=== PATIENT | female | born 1935 | race Two or more races ===

== ENCOUNTER 2016-08-22 05:15 | Inpatient (IN) | payer MEDICARE, MEDICAID ==
[~2016-08-22] VITALS: Ht 149.9 cm; Wt 80.3 kg
[~2016-08-22 05:15] MED LIST: Bisacodyl RC; CALC500T71 PO; CARV3.122 PO; CHOL100044 PO; DOCU-25 PO; HYDR-3326 PO; HYDR-4076 PO; LOSA50TA21 PO; METF500T4 PO; RIVA10TA PO; SIMV20TA6 PO; Sennosides PO
[2016-08-22] MEDS ORDERED: SECONDARY IV SET 1 EA INFUS.SET MC ONE ×2 (05:29→14:28)
[2016-08-22] MEDS ORDERED: IV LR 1000 ML 1,000 ML ONE (05:29)
[2016-08-22] MEDS ORDERED: CEFAZOLIN SODIUM/DEXTROSE,ISO 50 ML IV ONE (05:29)
[2016-08-22] MEDS ORDERED: IV SET PRIMARY 1 EA INFUS.SET MC ONE (05:29)
[2016-08-22] MEDS ORDERED: NEEDLELESS EST SET LARGE BORE 1 EA INFUS.SET MC ONE (05:29)
[2016-08-22] MEDS ORDERED: MIDAZOLAM HCL 2 MG/2ML VIAL ONE (06:13)
[2016-08-22] MEDS ORDERED: MORPHINE SULFATE/PF 10 MG/10ML (1MG/ML) AMPUL ONE (06:14)
[2016-08-22] MEDS ORDERED: BUPIVACAINE MPF 0.5% W/EPI INJ 30 ML VIAL ONE (06:27)
[2016-08-22] MEDS ORDERED: BACITRACIN 50000 UNITS/VIAL ONE (06:27)
[2016-08-22] MEDS ORDERED: LIDOCAINE HCL/PF 1% 30 ML SDV ONE (06:27)
[2016-08-22] MEDS ORDERED: KETOROLAC TROMETHAMINE INJ 30 MG/ML VIAL ONE (07:21)
[2016-08-22] MEDS ORDERED: TRANEXAMIC ACID 3,000 MG in SODIUM CHLORIDE IRRIG SOLUTION 70 ML IR ONE (07:30)
[2016-08-22 07:35] VITALS: BP 166/76
[2016-08-22] MEDS ORDERED: METOCLOPRAMIDE HCL 10 MG/2 ML VIAL ONE (09:05)
[2016-08-22 09:30] VITALS: BP 153/78
--- NOTE | 2016-08-22 09:30 | NUR ---
DROP HAMMER MECHANIC DIRECT ADMITTING NOTES DIRECTLY ADMITTED PT FROM OR WITH DX OSTEOARTHRITIS S/P LT TOTAL KNEE ARTHROPLASTY BY DR MOSELEY WITH DRESSING INTACT-CLEAN AND DRY.PT IS ALERT AND ORIENTED X4.VERBALLY RESPONSIVE IN KOREAN.WITH KAN CATHETER DRAINING CLEAR URINE OUTPUT.COORDINATED WITH P.T. REGARDING CPM MACHINE.FOR P.T. EVAL.PT FEELS NAUSEOUS.ZOFRAN GIVEN PRN FOR NAUSEA NGT.CALL LIGHT PLACED WITHIN REACH.WILL CONTINUE TO MONITOR.
[2016-08-22] MEDS ORDERED: NALOXONE HCL 0.4 MG/ML AMPUL IV PRN (10:00)
[2016-08-22] MEDS ORDERED: DULCOLAX 10 MG/SUPP.RECT RC PRN (10:00)
[2016-08-22] MEDS ORDERED: SENOKOT 8.6 MG TABLET PO PRN (10:00)
[2016-08-22] MEDS ORDERED: COLACE 250 MG CAPSULE PO PRN (10:00)
[2016-08-22] MEDS ORDERED: diphenhydrAMINE HCL 50 MG/ML VIAL IV PRN (10:00)
[2016-08-22] MEDS ORDERED: TYLENOL 650 MG TABLET PO PRN (10:00)
[2016-08-22] MEDS: ZOFRAN 4mg/2ML IV PRN ×3 (10:08→22:28)
[2016-08-22] MEDS ORDERED: DEXTROSE 50%-WATER 50 ML DISP.SYRIN IV PRN (11:00)
[2016-08-22 12:00] VITALS: BP 180/96
[2016-08-22 12:09] LABS: BASOPHILS % (AUTO) 0.2 % (0.0-2.0); EOSINOPHILS % (AUTO) 0.1 % (0.0-6.0); HEMATOCRIT 40 % (33-45); HEMOGLOBIN 12.9 g/dL (11.5-14.8); LYMPHOCYTES # (AUTO) 1.4 /CMM (0.8-4.8); LYMPHOCYTES % (AUTO) 12.7 % (20.0-44.0); MEAN CORPUSCULAR HEMOGLOBIN 28 PG (26.0-33.0); MEAN CORPUSCULAR HGB CONC 33 g/dl (31.0-36.0); MEAN CORPUSCULAR VOLUME 87 fL (82-100); MONOCYTES # (AUTO) 0.1 /CMM (0.1-1.30); MONOCYTES % (AUTO) 0.8 % (2.0-12.0); NEUTROPHILS # (AUTO) 9.3 /CMM (1.8-8.9); NEUTROPHILS % (AUTO) 86.2 % (43.0-81.0); PLATELET COUNT (AUTO) 273 /CMM (150-450); RDW COEFFICIENT OF VARIATION 14.9 (11.5-15.0); RED BLOOD CELL COUNT(AUTO) 4.55 MIL/uL (4.0-5.2); WHITE BLOOD COUNT (AUTO) 10.8 K/uL (4.3-11.0)
[2016-08-22 12:14] LABS: CALCIUM, SERUM 8.2 mg/dL (8.5-10.1); CREATININE 0.6 mg/dL (0.6-1.3); MAGNESIUM 1.7 mg/dL (1.8-2.4); POTASSIUM 4.1 mmol/L (3.5-5.1)
[2016-08-22] MEDS ORDERED: POLYETHYLENE GLYCOL 3350 17 GM POWD.PACK PO PRN (13:30)
[2016-08-22] MEDS: Magnesium 1GM/D5W 100ML PREMIX 100 ML IV SCH ×2 (14:22→16:11)
[2016-08-22] MEDS: hydrALAZINE HCL 25 MG TABLET PO PRN (14:22)
[2016-08-22] MEDS: BLOOD SUGAR DIAGNOSTIC 1 EACH STRIP IN SCH ×3 (14:22→21:12)
[2016-08-22] MEDS ORDERED: IV SET PRIMARY PUMP SET 1 EA INFUS.SET MC ONE (14:24)
[2016-08-22] MEDS: IV D5/0.45 NACL 1,000 ML IV PRN (14:39)
[2016-08-22 16:00] VITALS: BP 138/77
[2016-08-22] MEDS: ANCEF 1 G in IV D5W 50 ML IV SCH ×2 (16:12→22:28)
--- NOTE | 2016-08-22 18:00 | NUR ---
PT RESTING IN BED DENYING ANY PAIN OR DISTRESS.REMOVED CPM.PT STILL HAS MILD NAUSEA.REFUSED PAIN MEDS OFFERED.CALL LIGHT WITHIN REACH.
[2016-08-22] MEDS: DOCUSATE SODIUM 100 MG CAPSULE PO SCH (18:20)
[2016-08-22] MEDS: CALCIUM CARBONATE (1250) 500 MG TABLET PO SCH (18:20)
[2016-08-22] MEDS: INSULIN REGULAR, HUMAN 100 UNIT/ML 3 ML VIAL SQ PRN ×2 (18:23→21:14)
--- NOTE | 2016-08-22 19:25 | NUR ---
WHEAT BUYER NOTE RECEIVED PATIENT FROM DAY SHIFT, PATIENT IS ALERT AND ORIENTEDX4, SLOVENIAN SPEAKER MAINLY. DENIES RESPIRATORY DISTRESS OR PAIN AT THIS TIME. IV ON RIGHT WRIST IS PATENT AND INTACT, FLUID IS RUNNING. S/P LEFT KNEE DRESSING NOTED C/D/I. TELE MONITOR SR 75. SRX2, BED IN LOW POSITION, CALL LIGHT WITHIN REACH, WILL CONTINUE TO MONITOR PATIENT.
[2016-08-22 20:50] VITALS: BP 137/69
[2016-08-22] MEDS: RIVAROXABAN 10 MG TABLET PO SCH (21:13)
[2016-08-22] MEDS ORDERED: AMBIEN 5 MG TABLET PO PRN (22:00)
--- NOTE | 2016-08-22 22:30 | NUR ---
PROGRAMMING INTERNSHIP NOTE PATIENT COMPLAINS OF FEELING NAUSEOUS, ZOFRAN IVP GIVEN. WILL MONITOR FOR EFFECTIVENESS.
[2016-08-22] MEDS: MORPHINE SULFATE INJ 2 MG/ML DISP.SYRIN IV PRN (23:17)
--- NOTE | 2016-08-22 23:20 | NUR ---
PNEUMATIC TUBE REPAIRER NOTE PATIENT COMPLAINS OF SEVERE PAIN ON LEFT LEG 10/10, MORPHINE 2MG IVP GIVEN. WILL MONITOR FOR EFFECTIVENESS.
[2016-08-23 00:36] VITALS: BP 152/71
[2016-08-23] MEDS: IV D5/0.45 NACL 1,000 ML IV PRN (01:54)
[2016-08-23 04:14] VITALS: BP 161/71
[2016-08-23] MEDS: ZOFRAN 4mg/2ML IV PRN (04:22)
[2016-08-23] MEDS: MORPHINE SULFATE INJ 2 MG/ML DISP.SYRIN IV PRN ×2 (05:38→08:48)
[2016-08-23] MEDS: INSULIN REGULAR, HUMAN 100 UNIT/ML 3 ML VIAL SQ PRN ×4 (05:42→21:30)
[2016-08-23] MEDS: BLOOD SUGAR DIAGNOSTIC 1 EACH STRIP IN SCH ×4 (05:43→21:29)
--- NOTE | 2016-08-23 06:56 | NUR ---
IC DESIGNER CUSTOM NOTE PATIENT IS RESTING IN BED COMFORTABLY, NO S/S OF RESPIRATORY DISTRESS AND COMPLAINS OF MILD PAIN ON LEFT LEG. TELE MONITOR SR 83. IV ON RIGHT WRIST PATENT AND INTACT, FLUID RUNNING. WILL ENDORSE TO DAY SHIFT FOR AMBREEN.
[2016-08-23 07:10] VITALS: BP 170/74
--- NOTE | 2016-08-23 07:15 | NUR ---
bi solutions architect initial notes Received patient in bed, awake, head of bed elevated, no SOB or distress noted, on 02 @ 2lpm via NC and tolerated well. Alert and oriented x 3, verbally responsive and able to make needs known. IV intact and patent with IVF infusing well. Hartman in placed attached to drainage bag. Kept patient clean and comfortable in bed, call light with in patient reach, will continue to monitor accordingly. On tele monitor SR heart rate of 73.
[2016-08-23 08:00] VITALS: BP 170/74
[2016-08-23 08:08] LABS: BASOPHILS % (AUTO) 0.1 % (0.0-2.0); HEMATOCRIT 36 % (33-45); HEMOGLOBIN 11.8 g/dL (11.5-14.8); LYMPHOCYTES # (AUTO) 1.5 /CMM (0.8-4.8); LYMPHOCYTES % (AUTO) 12.7 % (20.0-44.0); MEAN CORPUSCULAR HEMOGLOBIN 29 PG (26.0-33.0); MEAN CORPUSCULAR HGB CONC 33 g/dl (31.0-36.0); MEAN CORPUSCULAR VOLUME 86 fL (82-100); MONOCYTES # (AUTO) 0.7 /CMM (0.1-1.30); NEUTROPHILS # (AUTO) 9.5 /CMM (1.8-8.9); NEUTROPHILS % (AUTO) 81.2 % (43.0-81.0); PLATELET COUNT (AUTO) 253 /CMM (150-450); RDW COEFFICIENT OF VARIATION 14.7 (11.5-15.0); RED BLOOD CELL COUNT(AUTO) 4.11 MIL/uL (4.0-5.2); WHITE BLOOD COUNT (AUTO) 11.7 K/uL (4.3-11.0)
[2016-08-23 08:16] LABS: CALCIUM, SERUM 8.1 mg/dL (8.5-10.1); CREATININE 0.6 mg/dL (0.6-1.3); MAGNESIUM 1.9 mg/dL (1.8-2.4); PHOSPHORUS 2.7 mg/dL (2.5-4.9); POTASSIUM 3.7 mmol/L (3.5-5.1)
[2016-08-23] MEDS: CALCIUM CARBONATE (1250) 500 MG TABLET PO SCH ×2 (08:40→16:30)
[2016-08-23] MEDS: DOCUSATE SODIUM 100 MG CAPSULE PO SCH ×2 (08:41→16:30)
[2016-08-23] MEDS: SIMVASTATIN 20 MG TABLET PO SCH (08:41)
[2016-08-23] MEDS ORDERED: CARVEDILOL 3.125 MG TABLET PO SCH (09:00)
[2016-08-23] MEDS ORDERED: LOSARTAN POTASSIUM 50 MG TABLET PO SCH (09:00)
--- NOTE | 2016-08-23 12:22 | NUR ---
MS RN NOTES blood sugar checked 129 no coverage given. Will continue to monitor accordingly.
[2016-08-23] MEDS: HYDROCODONE/APAP 5/325MG 1 EACH TABLET PO PRN ×3 (13:25→19:44)
[2016-08-23 16:00] VITALS: BP_SYST 166; BP_DIAS 63; BP_DIAS 83
[2016-08-23] MEDS: RIVAROXABAN 10 MG TABLET PO SCH (16:30)
[2016-08-23] MEDS: METFORMIN 500 MG TABLET PO SCH (16:30)
--- NOTE | 2016-08-23 19:20 | NUR ---
ms rn closing notes All needs provided, attended, and anticipated. kept patient clean and comfortable in bed, call light with in patient reach, will continue to monitor accordingly. Endorsed to next shift RN to continue care. Hartman output 1600ml.
--- NOTE | 2016-08-23 19:45 | NUR ---
MS RN NOTE PATIENT COMPLAINS OF PAIN ON LEFT LEG, NORCO [id number] PO GIVEN. WILL MONITOR FOR EFFECTIVENESS.
[2016-08-23 20:00] VITALS: BP 161/66
--- NOTE | 2016-08-23 20:13 | NUR ---
MS RN NOTE RECEIVED PATIENT FROM DAY SHIFT, PATIENT IS ALERT AND ORIENTEDX3, NO S/S OF RESPIRATORY DISTRESS AND COMPLAINS OF PAIN ON LEFT LEG AT THIS TIME. IV ON RIGHT WRIST IS PATENT AND INTACT, HL ONLY. KAN PRESENT WITH YELLOW, CLEAR URINE. SRX2, BED IN LOW POSITION, CALL LIGHT WITHIN REACH, WILL CONTINUE TO MONITOR PATIENT.
[2016-08-23] MEDS: hydrALAZINE HCL 25 MG TABLET PO PRN (21:56)
--- NOTE | 2016-08-23 22:00 | NUR ---
MS RN NOTE PATIENT'S BP WAS 161/66 PULSE 81. PRN HYDRALIZINE 50MG PO GIVEN. WILL MONITOR HER BP AGAIN.
[2016-08-24 04:00] VITALS: BP 150/74
[2016-08-24] MEDS: BLOOD SUGAR DIAGNOSTIC 1 EACH STRIP IN SCH ×4 (05:46→21:10)
[2016-08-24] MEDS: INSULIN REGULAR, HUMAN 100 UNIT/ML 3 ML VIAL SQ PRN ×4 (05:47→21:15)
--- NOTE | 2016-08-24 06:51 | NUR ---
MS RN NOTE PATIENT IS RESTING IN BED COMFORTABLY, DENIES RESPIRATORY DISTRESS OR PAIN AT THIS TIME. IV ON RIGHT FA IS PATENT AND INTACT, HL. NO ACUTE EVENT NOTED DURING THE HEAD OF GEOGRAPHY, WILL ENDORSE TO DAY SHIFT NURSE FOR AMBREEN.
--- NOTE | 2016-08-24 07:15 | NUR ---
MS RN INITIAL NOTES RECEIVED PATIENT IN BED, AWAKE. A/O X3, SAMI SPEAKING, UNDERSTAND LITTLE RUSSIAN. ON OXYGEN AT 2L/MIN VIA NC, NO SOB NOTED. LEFT KNEE DRESSING IN PLACE, ELEVATED WITH PILLOWS, NO C/O PAIN AT THIS TIME. KAN CATH DRAINING TO GRAVITY. CALL LIGHT WITHIN REACH. WILL CONT TO MONITOR.
[2016-08-24 07:26] LABS: BASOPHILS % (AUTO) 0.1 % (0.0-2.0); EOSINOPHILS # (AUTO) 0.1 /CMM (0.0-0.7); EOSINOPHILS % (AUTO) 0.5 % (0.0-6.0); HEMATOCRIT 34 % (33-45); HEMOGLOBIN 11.2 g/dL (11.5-14.8); LYMPHOCYTES # (AUTO) 1.9 /CMM (0.8-4.8); MEAN CORPUSCULAR HEMOGLOBIN 29 PG (26.0-33.0); MEAN CORPUSCULAR HGB CONC 33 g/dl (31.0-36.0); MEAN CORPUSCULAR VOLUME 86 fL (82-100); MONOCYTES # (AUTO) 0.6 /CMM (0.1-1.30); MONOCYTES % (AUTO) 4.8 % (2.0-12.0); NEUTROPHILS # (AUTO) 9.9 /CMM (1.8-8.9); NEUTROPHILS % (AUTO) 79.6 % (43.0-81.0); PLATELET COUNT (AUTO) 224 /CMM (150-450); RDW COEFFICIENT OF VARIATION 14.6 (11.5-15.0); RED BLOOD CELL COUNT(AUTO) 3.92 MIL/uL (4.0-5.2); WHITE BLOOD COUNT (AUTO) 12.5 K/uL (4.3-11.0)
[2016-08-24 07:55] LABS: CALCIUM, SERUM 8.6 mg/dL (8.5-10.1); CREATININE 0.6 mg/dL (0.6-1.3); MAGNESIUM 1.8 mg/dL (1.8-2.4); PHOSPHORUS 2.3 mg/dL (2.5-4.9); POTASSIUM 3.8 mmol/L (3.5-5.1)
[2016-08-24 08:00] VITALS: BP_SYST 118; BP_SYST 143; BP_DIAS 66; BP_DIAS 68
[2016-08-24] MEDS: METFORMIN 500 MG TABLET PO SCH ×2 (08:19→16:58)
[2016-08-24] MEDS: DOCUSATE SODIUM 100 MG CAPSULE PO SCH ×2 (08:19→16:58)
[2016-08-24] MEDS: SIMVASTATIN 20 MG TABLET PO SCH (08:20)
[2016-08-24] MEDS: CARVEDILOL 3.125 MG TABLET PO SCH (08:20)
[2016-08-24] MEDS: CALCIUM CARBONATE (1250) 500 MG TABLET PO SCH ×2 (08:20→16:58)
[2016-08-24] MEDS: LOSARTAN POTASSIUM 50 MG TABLET PO SCH (08:20)
--- NOTE | 2016-08-24 08:25 | NUR ---
PATIENT C/O LEFT KNEE PAIN 08/12. GIVEN TYLENOL 650MG PO PRN, WILL RE ASSESS.
--- NOTE | 2016-08-24 10:29 | NUR ---
FOR DC PLANNING, PATIENT SABLE FOR DC PER ORTHO.
[2016-08-24] MEDS: HYDROCODONE/APAP 5/325MG 1 EACH TABLET PO PRN ×2 (10:52→22:53)
--- NOTE | 2016-08-24 10:53 | NUR ---
PATIENT C/O LEFT KNEE PAIN 12/12. GIVEN NORCO 5/325MG 2 TAB PO PRN, WILL RE ASSESS.
[2016-08-24] MEDS ORDERED: K PHOS NEUTRAL 250 MG TABLET PO ONE (11:30)
--- NOTE | 2016-08-24 12:15 | NUR ---
PATIENT IS SEEN BY PT TODAY, PARTICIPATED WELL WITH NO C/O PAIN OR ANY DISCOMFORT. PATIENT AMBULATES WITH WALKER ASSIST. INFORMED DR. MALDONADO, PER MD HOUSTON TO REMOVE KAN CATH.
[2016-08-24] MEDS: AMLODIPINE BESYLATE 5 MG TABLET PO SCH (12:24)
--- NOTE | 2016-08-24 12:25 | NUR ---
BS 142MG/DL. GIVEN 2 UNITS INSULIN REGULAR SQ PER ISS COVERAGE. LOW PHOSPHORUS LEVEL 2.3 SUPPLEMENT ORDERED.
--- NOTE | 2016-08-24 15:06 | NUR ---
KAN CATH REMOVED ORDERED, OBTAINED 800ML URINE. URINE CATH SPECIMEN SEND TO LAB FOR UA.
[2016-08-24 16:00] VITALS: BP 139/72
[2016-08-24] MEDS: RIVAROXABAN 10 MG TABLET PO SCH (16:59)
[2016-08-24 17:07] LABS: APPEARANCE,URINE CLEAR (CLEAR); BILIRUBIN,URINE NEGATIVE (NEGATIVE); BLOOD, URINE 2+ Ery/uL (NEGATIVE); COLOR,URINE YELLOW (YELLOW); KETONES,URINE NEGATIVE (NEGATIVE); LEUKOCYTE ESTERASE ,URINE TRACE (NEGATIVE); NITRITE, URINE NEGATIVE (NEGATIVE); PH,URINE 7.5 (5.0-8.0); PROTEIN,URINE NEGATIVE (NEGATIVE); UGLUCOSE NEGATIVE (NEGATIVE); UROBILINOGEN,URINE 0.2 EU/dL (0.2)
[2016-08-24 17:29] LABS: ADD URINE CULTURE NO; BACTERIA,URINE Rare /HPF (None Seen); SQUAMOUS EPITHELIAL CELL,UR Few /HPF (None Seen)
--- NOTE | 2016-08-24 17:31 | NUR ---
BS 130MG/DL. NO INSULIN COVERAGE.
--- NOTE | 2016-08-24 19:00 | NUR ---
MS RN CLOSING NOTES PATIENT IN BED, AWAKE, NOT IN DISTRESS. BLOOD SUGAR MONITORED, NO S/S OF HYPO/HYPERGLYCEMIA NOTED. LEFT KNEE DRESSING INTACT, CPM IN PLACE, PATIENT TOLERATING WELL. NO C/O PAIN AT THIS TIME. CALL LIGHT WITHIN REACH. POSSIBLE DC TOMORROW PER MD. ENDORSED TO INSURANCE SALES REPRESENTATIVE RN FOR CONTINUITY OF CARE.
--- NOTE | 2016-08-24 19:32 | NUR ---
MS/RN OPENING NOTES PATIENT IN BED, AWAKE, ALERT. BELARUSIAN SPEAKING BUT CAN UNDERSTAND LITTLE HUNGARIAN. ON CPM MACHINE FOR 6 HOURS. WILL CHECK FOR CIRCULATION. NO S/S OF SOB OR DISTRESS. ABLE TO MAKE GOOD EYE CONTACT. CALL LIGHTS WITHIN REACH AND WILL CONTINUE TO MONITOR.
[2016-08-24 19:50] VITALS: BP 109/74
[2016-08-24 20:00] VITALS: BP 109/74
--- NOTE | 2016-08-24 22:45 | NUR ---
MS/RN NOTES PATIENT LEFT AND RIGHT GROIN OBSERVE WITH IRRITATION WITH COMPRESSION STOCKINGS/TIGHT ELASTIC BAND. MD MADE AWARE AND ORDERED TO MONITOR AND NOT TO PULL UP IN THE SITE THAT IS IRRITATED.
--- NOTE | 2016-08-24 22:49 | NUR ---
MS/RN NOTES PATIENT VERBALIZED PAIN OF 8/10 ON LEFT LEG , PAIN MEDICATION NORCO 5-325 2 TABS GIVEN WILL MONITOR PATIENT AND PAIN MANAGEMENT EFFECTIVENESS.
[2016-08-25] MEDS: BLOOD SUGAR DIAGNOSTIC 1 EACH STRIP IN SCH ×2 (05:52→12:04)
--- NOTE | 2016-08-25 06:18 | NUR ---
MS/RN CLOSING NOTES PATIENT IN BED, IN SEMI NDIAYE POSITON.AWAKE, ALERTX3. UKRAINIAN SPEAKING BUT CAN UNDERSTAND LITTLE RUSSIAN. BLOOD SUGAR CHECK WITH RESULT OF 140. ATTEND TO NEEDS. REPOSITION FOR COMFORT . KEPT SKIN INTACT AND DRY. CALL LIGHTS WITHIN REACH PITCHER OF WATER AT BEDSIDE. ON DVT PUMP WITH COMPRESSION STOCKINGS.NO S/S OF DISTRESS OR DISCOMFORT. WILL ENDORSE TO AM RN REGARDING AMBREEN.
[2016-08-25] MEDS: INSULIN REGULAR, HUMAN 100 UNIT/ML 3 ML VIAL SQ PRN ×2 (06:31→12:15)
--- NOTE | 2016-08-25 07:15 | NUR ---
MS RN INITIAL NOTES RECEIVED PATIENT IN BED AWAKE. NOT IN DISTRESS, BREATHING EVEN AND NON LABORED. LEFT KNEE DRESSING INTACT, SCD IN PLACE. NO C/O PAIN AT THIS TIME. CALL LIGHT WITHIN REACH. WILL CONT TO MONITOR.
[2016-08-25 07:28] LABS: BASOPHILS % (AUTO) 0.3 % (0.0-2.0); EOSINOPHILS # (AUTO) 0.4 /CMM (0.0-0.7); EOSINOPHILS % (AUTO) 4.2 % (0.0-6.0); HEMATOCRIT 36 % (33-45); HEMOGLOBIN 12.1 g/dL (11.5-14.8); LYMPHOCYTES # (AUTO) 2.8 /CMM (0.8-4.8); LYMPHOCYTES % (AUTO) 27.1 % (20.0-44.0); MEAN CORPUSCULAR HEMOGLOBIN 29 PG (26.0-33.0); MEAN CORPUSCULAR HGB CONC 33 g/dl (31.0-36.0); MEAN CORPUSCULAR VOLUME 87 fL (82-100); MONOCYTES # (AUTO) 0.8 /CMM (0.1-1.30); MONOCYTES % (AUTO) 7.6 % (2.0-12.0); NEUTROPHILS # (AUTO) 6.2 /CMM (1.8-8.9); NEUTROPHILS % (AUTO) 60.8 % (43.0-81.0); PLATELET COUNT (AUTO) 247 /CMM (150-450); RDW COEFFICIENT OF VARIATION 14.9 (11.5-15.0); RED BLOOD CELL COUNT(AUTO) 4.17 MIL/uL (4.0-5.2); WHITE BLOOD COUNT (AUTO) 10.2 K/uL (4.3-11.0)
[2016-08-25 08:00] VITALS: BP 125/59
[2016-08-25] MEDS: SIMVASTATIN 20 MG TABLET PO SCH (08:33)
[2016-08-25] MEDS: CARVEDILOL 3.125 MG TABLET PO SCH (08:33)
[2016-08-25] MEDS: DOCUSATE SODIUM 100 MG CAPSULE PO SCH (08:33)
[2016-08-25] MEDS: CALCIUM CARBONATE (1250) 500 MG TABLET PO SCH (08:33)
[2016-08-25] MEDS: LOSARTAN POTASSIUM 50 MG TABLET PO SCH (08:34)
[2016-08-25] MEDS: METFORMIN 500 MG TABLET PO SCH (08:34)
[2016-08-25] MEDS: AMLODIPINE BESYLATE 5 MG TABLET PO SCH (10:06)
--- NOTE | 2016-08-25 10:07 | NUR ---
NORVASC 5MG PO NON ADMINISTERED. BP REMAINS BELOW 150 SYSTOLIC SINCE EARLIER THIS MORNING. CURRENT BP 1OO7 AM 125/67
[2016-08-25] MEDS: HYDROCODONE/APAP 5/325MG 1 EACH TABLET PO PRN ×2 (10:20→14:06)
--- NOTE | 2016-08-25 10:26 | NUR ---
PATIENT C/O KNEE PAIN 12/12. GIVEN NORCO 5/325MG 2 TAB PO PRN, WILL RE ASSESS.
[2016-08-25] MEDS ORDERED: Losartan Potassium PO (12:14)
[2016-08-25] MEDS ORDERED: Docusate Sodium PO (12:14)
[2016-08-25] MEDS ORDERED: CARV3.122 PO (12:14)
[2016-08-25] MEDS ORDERED: Sennosides PO (12:14)
[2016-08-25] MEDS ORDERED: HYDR-3326 PO (12:14)
[2016-08-25] MEDS ORDERED: RIVA10TA PO (12:14)
--- NOTE | 2016-08-25 12:15 | NUR ---
PATIENT IS SEEN BY PT TODAY, PARTICIPATED WELL WITH NO C/O PAIN AT THIS TIME. CPM MACHINE IN PLACE. BS 154MG/DL GIVEN 2 UNITS INSULIN REGULAR SQ PER ISS COVERAGE.
--- NOTE | 2016-08-25 12:30 | NUR ---
PATIENT TO BE DISCHARGED TODAY ORDERED. PATIENT INFORMED.
--- NOTE | 2016-08-25 14:07 | NUR ---
PATIENT C/O LEFT KNEE PAIN 12/12. GIVEN NORCO 5/325MG PO PRN, WILL RE ASSESS.
[2016-08-25 16:00] VITALS: BP_SYST 122; BP_SYST 127; BP_DIAS 75
--- NOTE | 2016-08-25 16:30 | NUR ---
MS SOFTWARE ENGINEERING SUPERVISOR PATIENT HAS BEEN CLEARED FOR DISCHARGE TO SNF BY MD. PATIENT ABLE TO AMBULATE WITH WALKER. NO SOB, NO C/O PAIN AT THIS TIME. BLOOD SUGAR MONITORED. LEFT KNEE SURGICAL INCISION WITH YANELY INTACT, DRESSING CHANGED TODAY. V/S REMAINS STABLE. DISCHARGE INSTRUCTION GIVEN TO THE PATIENT WITH TAIWANESE AID COOK COLD MEAT, PATIENT VERBALIZED UNDERSTANDING. CALLED [facility], SPOKE TO WILTON-NITHYA FOR REPORT. IV IN RIGHT WRIST REMOVED, GAUZE APPLIED. NO BLEEDING NOTED. BELONGINGS CHECKED AND SEND WITH THE PATIENT UPON DISCHARGE. PATIENT LEFT HOSP IN STABLE CONDITION VIA AMBULANCE.
== END 2016-08-25 16:45 | DRG 470 ==
LOC: DS 05:15 → MED 09:45 → TELE 14:45 → MED 08-23 09:57
PROVIDERS: ADMIT Specialist; ATTEND Internal Medicine
PROC: 0SRD0J9 Replacement of Left Knee Joint with Synthetic Substitute, Cemented, Open Approach (ICD-10-PCS; principal; 2016-08-22 07:09)
DX: M17.12 Unilateral primary osteoarthritis, left knee (principal); E44.1 Mild protein-calorie malnutrition; E11.9 Type 2 diabetes mellitus without complications; E78.5 Hyperlipidemia, unspecified; I10 Essential (primary) hypertension; E66.01 Morbid (severe) obesity due to excess calories; Z68.35 Body mass index [BMI] 35.0-35.9, adult; D72.829 Elevated white blood cell count, unspecified
CPT/HCPCS: 36415; 80048-TC; 81000-TC; 82962-TC; 83735-TC; 84100-TC; 85025-TC; 86850-TC; 86921-TC; 87081-TC; 88305-TC; 88311-TC; 94799-TC; 97001-TC; 97110-TC; 97116-TC; 97530-TC; 97760-TC; A4217; A6402; C1713; J0690; J1100; J1815; J1885; J2250; J2270; J2274; J2370; J2405; J2765; J3475; J3490; J7060; J7120

== ENCOUNTER 2019-01-03 02:19 | Inpatient (IN) | payer MEDICARE, MEDICAID ==
[~2019-01-03 02:19] MED LIST changes: +CALC-1026 PO; -CALC500T71 PO; -DOCU-25 PO; +Docusate Sodium PO; -HYDR-3326 PO; +HYDR-3974 PO; -HYDR-4076 PO; -LOSA50TA21 PO; +LOSA50TA39 PO; +Losartan Potassium PO; +METF-440 PO; -METF500T4 PO
[2019-01-03 02:30] VITALS: BP 156/77
--- NOTE | 2019-01-03 02:40 | NUR ---
RN NOTES ARRIVED PATIENT IN THE UNIT DIRECT ADMIT FROM [facility], ACCOMPANIED BY 2 PARAMEDICS FROM [facility]. PATIENT IS AWAKE, RESTING COMFORTABLY TRANSPORTED VIA GURNEY, NOTIFY WOOD SCIENCE PROFESSOR TEVIN CELIS FOR ADMISSION ORDERS. INITIAL ASSESSMENT DONE, REPOSITIONED FOR COMFORT, PATIENT APPEARS TO BE SO CONFUSED. GREENLANDIC SPEAKING ONLY, GREENLANDIC SPEAKING STAFF AT BEDSIDE. SAFETY MEASURES INPLACE, ASPIRATION PRECAUTION EMPHASIZE. WILL CONTINUE TO MONITOR ACCORDINGLY.
[2019-01-03 03:00] VITALS: BP 136/77
[2019-01-03] MEDS ORDERED: LORAZEPAM INJ 2 MG/ML VIAL IV PRN (03:00)
[2019-01-03] MEDS ORDERED: HALOPERIDOL LACTATE INJ 5 MG/ML VIAL IM PRN (03:00)
[2019-01-03] MEDS ORDERED: MAG HYDROX/AL HYDROX/SIMETH 30 ML UDC PO PRN (03:00)
[2019-01-03] MEDS ORDERED: ONDANSETRON HCL/PF 4 MG/2 ML VIAL IVP PRN (03:00)
[2019-01-03] MEDS ORDERED: HYDROCODONE/APAP 5/325MG 1 EACH TABLET PO PRN (03:00)
[2019-01-03] MEDS ORDERED: MAGNESIUM HYDROXIDE 30 ML UDC PO PRN (03:00)
[2019-01-03] MEDS ORDERED: TEMAZEPAM 15 MG CAPSULE PO PRN (03:00)
--- NOTE | 2019-01-03 06:56 | NUR ---
RN NOTES ALL NEEDS ATTENDED AND MET, ABLE TO REST AND SLEPT. RESTING COMFORTABLY AT THIS TIME, WILL ENDORSE TO AM NURSE FOR CONTINUITY OF CARE.
--- NOTE | 2019-01-03 07:31 | NUR ---
RN OPENING NOTES RECEIVED PATIENT IN BED RESTING, CONFUSED, ITALIAN SPEAKING. NOT IN ANY FORM OF DISTRESS, NO SOB. NO S/S OF PAIN OR DISCOMFORT. IV ACCESS INTACT AND PATENT. KEPT PATIENT SAFE AND COMFORTABLE. BED IN LOW/LOCKED POSITION. SIDERAILS UPX2, CALL LIGHT IN REACH. WILL CONTINUE TO MONITOR ACCORDINGLY Addendum: 01/03/19 at 0734 by ALEXANDREA FAIR BED ALARM ON
[2019-01-03 08:00] VITALS: BP_SYST 159; BP_DIAS 73; BP_DIAS 80
--- NOTE | 2019-01-03 10:21 | NUR ---
RN NOTES: FAMILY CONTACT RECEIVED A CALL FROM HER LENY, WILL BRING HOME MEDICATION LIST THIS AFTERNOON. LAURIE MICHELLE [phone], LENY. (SHE'S THE ONLY FAMILY MEMBER.)
--- NOTE | 2019-01-03 11:00 | NUR ---
RN NOTES BP 170/86, NOTIFIED/PAGED COLBY FRAUSTO NP. AWAITING FOR REPLY
--- NOTE | 2019-01-03 12:30 | NUR ---
RN NOTES COLBY FRAUSTO RN AT BEDSIDE TALKING TO FELICE MONIQUE REGARDING PATIENT'S MED HISTORY. PER GAB BOWMAN HE'LL TAKE CARE OF THE MEDRECON.
[2019-01-03] MEDS ORDERED: LINA290C PO (12:44)
[2019-01-03] MEDS ORDERED: CARV12.5 PO (12:44)
[2019-01-03] MEDS ORDERED: LOSA100T31 PO (12:44)
[2019-01-03] MEDS ORDERED: OMEP40CA37 PO (12:44)
[2019-01-03] MEDS ORDERED: BISM525O14 PO (12:44)
[2019-01-03] MEDS ORDERED: SERT50TA PO (12:44)
[2019-01-03] MEDS ORDERED: SITA1TAB2 PO (12:44)
[2019-01-03] MEDS ORDERED: METF-440 PO (12:44)
[2019-01-03] MEDS ORDERED: ATOR20TA PO (12:44)
[2019-01-03] MEDS ORDERED: ASPI-605 PO (12:44)
[2019-01-03] MEDS ORDERED: HYDR-4076 PO (12:44)
[2019-01-03] MEDS ORDERED: TYL2T PO (12:44)
[2019-01-03] MEDS ORDERED: OLME40TA12 PO (15:03)
[2019-01-03] MEDS ORDERED: AMLO2.5T4 PO (15:11)
[2019-01-03] MEDS ORDERED: DEXTROSE 50%-WATER 50 ML DISP.SYRIN IV PRN (15:30)
[2019-01-03] MEDS ORDERED: hydrALAZINE HCL 25 MG TABLET PO PRN (15:30)
[2019-01-03 16:00] VITALS: BP 190/81
[2019-01-03] MEDS: LOSARTAN POTASSIUM 50 MG TABLET PO SCH (16:59)
[2019-01-03] MEDS: CARVEDILOL 12.5 MG TABLET PO SCH (17:00)
[2019-01-03] MEDS: BLOOD SUGAR DIAGNOSTIC 1 EACH STRIP IN SCH ×2 (17:12→22:53)
[2019-01-03 18:00] VITALS: BP 136/71
--- NOTE | 2019-01-03 19:14 | NUR ---
TEXTED DR. MAY FOR MRI APPROVAL.
--- NOTE | 2019-01-03 19:15 | NUR ---
RN CLOSING NOTES PATIENT IN STABLE CONDITION. ALL NEEDS ATTENDED AND PROVIDED. ALL DUE MEDS GIVEN ORDERED. TURNED AND REPOSITIONED PATIENT EVERY 2HRS NEEDED. KEPT PATIENT SAFE AND COMFORTABLE. BED IN LOW/LOCKED POSIITON, SIDERAILS UPX2. CALL LIGHT IN REACH. ENDORSED TO NIGHT RN FOR AMBREEN.
--- NOTE | 2019-01-03 19:30 | NUR ---
MS/RN RECEIVE PATIENT AWAKE, ALERT, ORIENTED, TO NAME, COMFORTABLE, NO DISTRESS NOTED, FALL PRECAUTION, WILL MONITOR.
[2019-01-03 20:07] VITALS: BP 163/71
[2019-01-03] MEDS: INSULIN GLARGINE, 100 UNIT/ML CARTRIDGE SQ SCH (22:00)
[2019-01-03] MEDS: AMLODIPINE BESYLATE 2.5 MG TABLET PO SCH (22:53)
--- NOTE | 2019-01-04 | NUR ---
MS/RN PATIENT IS SLEEPING, AROUSABLE, APPEAR COMFORTABLE, NO DISTRESS NOTED, CALL LIGHT IN REACH. WILL CONTINUE TO MONITOR.
[2019-01-04 06:31] LABS: BASOPHILS % (AUTO) 0.5 % (0.0-2.0); EOSINOPHILS % (AUTO) 2.3 % (0.0-6.0); HEMATOCRIT 41 % (33-45); HEMOGLOBIN 13.4 g/dL (11.5-14.8); LYMPHOCYTES # (AUTO) 2.3 /CMM (0.8-4.8); LYMPHOCYTES % (AUTO) 28.2 % (20.0-44.0); MEAN CORPUSCULAR HGB CONC 33 g/dl (31.0-36.0); MEAN CORPUSCULAR VOLUME 88 fL (82-100); MONOCYTES # (AUTO) 0.9 /CMM (0.1-1.30); MONOCYTES % (AUTO) 10.6 % (2.0-12.0); NEUTROPHILS # (AUTO) 4.8 /CMM (1.8-8.9); NEUTROPHILS % (AUTO) 58.4 % (43.0-81.0); PLATELET COUNT (AUTO) 249 /CMM (150-450); RED BLOOD CELL COUNT(AUTO) 4.63 MIL/uL (4.0-5.2); WHITE BLOOD COUNT (AUTO) 8.3 K/uL (4.3-11.0)
[2019-01-04 06:59] LABS: CALCIUM, SERUM 9.4 mg/dL (8.5-10.1); CARBON DIOXIDE 24 mmol/L (21-32); CHLORIDE 103 mmol/L (98-107); CHOLESTEROL 206 mg/dL (<200); CREATININE 0.8 mg/dL (0.6-1.3); GLUCOSE 103 mg/dL (74-106); HDL CHOLESTEROL 39 mg/dL (40-60); LDL 150 mg/dL (0-99); MAGNESIUM 2.2 mg/dL (1.8-2.4); PHOSPHORUS 4.3 mg/dL (2.5-4.9); POTASSIUM 3.9 mmol/L (3.5-5.1); SODIUM SERUM 138 mmol/L (136-145); THYROID STIMULATING HORMONE 1.403 uIU/mL (0.358-3.74); TRIGLYCERIDES 110 mg/dL (30-150); UREA NITROGEN, BLOOD 15 mg/dL (7-18)
--- NOTE | 2019-01-04 07:21 | NUR ---
MS/RN PATIENT IS AWAKE AT THIS TIME, COMFORTABLE, NO DISTRESS NOTED, ALL NEEDS ATTENDED AT THIS TIME, ENDORSED TO NEXT RN FOR AMBREEN.
--- NOTE | 2019-01-04 07:27 | NUR ---
MS/RN OPENING NOTE PATIENT IN BED IN STABLE CONDITION. A/O X 1, NON VERBAL AT THIS TIME ONLY HEAD NODDING TO QUESTION. NO SIGNS OF ACUTE DISTRESS. NO COMPLAIN OF PAIN OR DISCOMFORT. ALL NEEDS ATTENDED TO. CALL LIGHT WITHIN REACH.WILL CONTINUE TO MONITOR TO ENSURE SAFETY.
--- NOTE | 2019-01-04 07:28 | NUR ---
MS/RN ALSO PER ENDORSEMENT PATIENT NOTED WITH RIGHT SIDE WEAKNESS AND UNABLE TO USE BEDSIDE COMODE DURING MANAGER R D SECONDARY TO RIGHT SIDE WEAKNESS. WILL CONTINUE TO MONITOR FOR FURTHER CHANGES.
[2019-01-04] MEDS ORDERED: PANTOPRAZOLE 40 MG TABLET.DR PO SCH (07:30)
[2019-01-04 08:00] VITALS: BP 174/80
[2019-01-04] MEDS: BLOOD SUGAR DIAGNOSTIC 1 EACH STRIP IN SCH ×4 (08:24→21:57)
[2019-01-04] MEDS: SERTRALINE HCL 50 MG TABLET PO SCH (08:24)
[2019-01-04] MEDS: ASPIRIN EC 81 MG TABLET.DR PO SCH (08:25)
[2019-01-04] MEDS: LOSARTAN POTASSIUM 50 MG TABLET PO SCH (08:25)
[2019-01-04] MEDS: CARVEDILOL 12.5 MG TABLET PO SCH ×2 (08:25→16:45)
[2019-01-04] MEDS: ATORVASTATIN 40 MG TABLET PO SCH (08:26)
[2019-01-04] MEDS ORDERED: ATORVASTATIN 10 MG TABLET PO SCH (09:00)
[2019-01-04] MEDS ORDERED: Medication Not On Formulary EA (Olmesartan Medoxomil (Benicar) 40 MG) PO SCH (09:00)
--- NOTE | 2019-01-04 11:46 | NUR ---
MS/RN SPOKE WITH DR BOWMAN AND NOTIFIED UNABLE TO GET COMPLETE MRI CHECKLIST DONE SECONDARY TO PATIENT UNABLE TO ANSWER QUESTIONS AT THIS TIME, AND PATIENT FAMILY NIECE LAURIE ALSO HAVE VERY LIMITED INFORMATION. PER [employer] DIVER SAFE TO DO XRAY SKULL AND CXR TO MAKE SURE NO PACEMAKER OR METAL CLIPPING PRESENT. DR BOWMAN NOTIFIED PER COLBY NEWTON TO ORDER STAT CXR AND STAT SKULL XR. ORDERS NOTED AND CARRIED OUT.
[2019-01-04] MEDS: INSULIN REGULAR, HUMAN 100 UNIT/ML 3 ML VIAL SQ PRN (12:50)
--- NOTE | 2019-01-04 12:50 | NUR ---
MS/RN REGULAR INSULIN HELD FOR NOON TIME SECONDARY TO PATIENT REFUSED LUNCH. WILL CONTINUE TO MONITOR FOR FURTHER CHANGES AND TO ENSURE SAFETY.
--- NOTE | 2019-01-04 15:10 | NUR ---
MS/RN PER NUSRAT AUTO SPECIALTY SERVICES MANAGER. RADIOLOGIST DOES NOT FEEL SAFE TO DO MRI AT THIS TIME SINCE THERE IS NO INFORMATION REGARDS TO WHAT COIL EMBOLIZATION PRESENT IN HEAD IS MADE OF AND IS REQUESTING INFORMATION FROM [facility] WHERE PATIENT HAD SURGERY IN 2017 SECONDARY TO BLEEDING IN HEAD. SPOKE WITH LAURIE THE NIECE AND ASK IF [facility] PROVIDED THEM WITH PAPER WORK DURING THEIR STAY AT THE [facility]. PER LAURIE, PATIENT HAS ALL THE PAPERS AT HOME AND WILL CALL ME BACK TO LET ME KNOW IF SHE IS ABLE TO BRING THEM.
--- NOTE | 2019-01-04 15:37 | NUR ---
MS/RN RECEIVED CALL BACK FROM ENEIDA SULLIVAN AND PER LAURIE THEY ARE UNABLE TO FIND HER [facility] RECORDS AT HOME. THEREFORE, SHE GAVE PHONE CONSENT ALONG WITH [facility] TO RELEASE OF INFORMATION FROM [facility] TO [facility]. FAX REQUEST TO RELEASE RECORDS FROM [facility].
--- NOTE | 2019-01-04 15:59 | NUR ---
MS/RN SEEN AND EXAMINED BY DR SANDOVAL WITH ORDERS FOR STAT CTA BRAIN. NPO STATUS AT THIS TIME FOR ASPIRATION PRECAUTION. Addendum: 01/04/19 at 1755 by VINNY LYNNE RN ALSO PER DR FAIRBANKS TO HOLD BP MEDICATION FOR RIGHT NOW AND ASPIRIN WELL.
[2019-01-04 16:00] VITALS: BP 175/84
--- NOTE | 2019-01-04 16:00 | NUR ---
MS/RN ALSO DR SANDOVAL AWARE UNABLE TO DO MRI BRAIN AT THIS TIME SECONDARY TO PER RADIOLOGIST IT'S NOT SAFE TO DO MRI UNTIL THEY HAVE COMPLETE INFORMATION REGARDS TO COIL EMBOLI IN HEAD AND REQUESTED INFORMATION FROM [facility] SINCE PATIENT HAD SURGERY DONE IN 2017.
[2019-01-04] MEDS ORDERED: CT SWABBABLE VALVE TRANS SET 1 EA INFUS.SET MC ONE (17:03)
[2019-01-04] MEDS ORDERED: IOHEXOL-350 100 ML VIAL IV ONE (17:03)
[2019-01-04] MEDS ORDERED: IV NS 0.9% 250 ML IV ONE (17:03)
--- NOTE | 2019-01-04 18:09 | NUR ---
MS/RN RELAYED CTA HEAD RESULTS TO DR SANDOVAL WITH ORDERS TO TRANSFER PATIENT TO ICU.
--- NOTE | 2019-01-04 18:10 | NUR ---
MS RN NOTES PAGED DR COLBY CARUSO WAITING FOR CALL BACK.
--- NOTE | 2019-01-04 18:30 | NUR ---
PANEL COVERER RECEIVED PT FROM M/S FOR WORSENING NEUROLOGICAL SYMPTOMS. REPORT RECEIVED FROM 3W RN. PT OPENS EYES SPONTANEOUSLY. DOES NOT FOLLOW COMMANDS. NODS YES TO ALL QUESTIONS. NONVERBAL. RIGHT SIDE WEAK.
--- NOTE | 2019-01-04 18:38 | NUR ---
MS/RN PATIENT TRANSFER TO ICU VIA ACLS METHOD IN STABLE CONDITION ROOM 262. REPORT GIVEN TO NITHYA KELLEY. ALSO NOTIFIED TO CALL DR SANDOVAL FOR NEW ORDERS. [facility] AND LAURIE NOTIFIED.
[2019-01-04 20:00] VITALS: BP_SYST 156; BP_SYST 159; BP_DIAS 81
[2019-01-04] MEDS ORDERED: hydrALAZINE HCL IV 20 MG VIAL IV PRN (20:00)
--- NOTE | 2019-01-04 20:00 | NUR ---
RN OPENING NOTE PATIENT IN BED IN STABLE CONDITION. A/O X 1, WITH R SIDE FACIAL DROOPING. DEBORAH WORDS, FOLLOW COMMANDS, NO SIGNS OF ACUTE DISTRESS. NO COMPLAIN OF PAIN OR DISCOMFORT. ALL NEEDS ATTENDED TO. CALL LIGHT WITHIN REACH. ALL SAFETY PRECAUTIONS TAKEN. WILL CONTINUE TO MONITOR TO ENSURE SAFETY.
--- NOTE | 2019-01-04 20:08 | NUR ---
Paged NICOLETTE,Gal Swan regarding diet order.Patient passed swallow screen per protocol.
--- NOTE | 2019-01-04 20:30 | NUR ---
Rene WILL not responding.Paged Mian DE GUZMAN regarding patient status. He said to hector Santo he is still here in the hospital.
--- NOTE | 2019-01-04 20:55 | NUR ---
NEON TUBE BENDER,TEVIN here in ICU updated of patient status, passed swallow screen and CTA HEAD result.Orders received and carried out.
[2019-01-04 21:00] VITALS: BP 170/72
[2019-01-04] MEDS: CLOPIDOGREL BISULFATE 75 MG TABLET PO SCH (21:05)
--- NOTE | 2019-01-04 21:20 | NUR ---
Rene WILL returned call and updated of patient status and CTA Head result. Not aware that patient was transferred here in ICU.No new orders received.Patient awake alert able follows simple commands.With right sided weakness and slurred speech. Able to verbalized thank you.Aspiration precaution and fall precaution implemented. Continue monitoring.
[2019-01-04] MEDS: AMLODIPINE BESYLATE 2.5 MG TABLET PO SCH (21:57)
[2019-01-04 22:00] VITALS: BP 168/86
[2019-01-04] MEDS: INSULIN GLARGINE, 100 UNIT/ML CARTRIDGE SQ SCH (22:03)
[2019-01-04 23:00] VITALS: BP 155/69
[2019-01-05] VITALS (30 sets, daily range): BP systolic 84–179; BP diastolic 39–99
--- NOTE | 2019-01-05 00:10 | NUR ---
Patient unable to urinate bladder feels distended.Looks uncomfortable.GAB Pappas notified with orders.Hartman cath F#16 inserted under aseptic technique without difficulty.Drained 1500ml clear carlos urine.Appears comfortable this time.
[2019-01-05 05:07] LABS: BASOPHILS % (AUTO) 0.6 % (0.0-2.0); EOSINOPHILS % (AUTO) 1.8 % (0.0-6.0); HEMATOCRIT 41 % (33-45); HEMOGLOBIN 13.8 g/dL (11.5-14.8); LYMPHOCYTES # (AUTO) 2.3 /CMM (0.8-4.8); LYMPHOCYTES % (AUTO) 28.9 % (20.0-44.0); MEAN CORPUSCULAR HGB CONC 34 g/dl (31.0-36.0); MEAN CORPUSCULAR VOLUME 88 fL (82-100); MONOCYTES # (AUTO) 0.8 /CMM (0.1-1.30); MONOCYTES % (AUTO) 10.5 % (2.0-12.0); NEUTROPHILS # (AUTO) 4.6 /CMM (1.8-8.9); NEUTROPHILS % (AUTO) 58.2 % (43.0-81.0); PLATELET COUNT (AUTO) 260 /CMM (150-450); RED BLOOD CELL COUNT(AUTO) 4.66 MIL/uL (4.0-5.2); WHITE BLOOD COUNT (AUTO) 7.9 K/uL (4.3-11.0)
[2019-01-05 05:09] LABS: CALCIUM, SERUM 8.9 mg/dL (8.5-10.1); CARBON DIOXIDE 26 mmol/L (21-32); CHLORIDE 106 mmol/L (98-107); GLUCOSE 103 mg/dL (74-106); POTASSIUM 3.9 mmol/L (3.5-5.1); SODIUM SERUM 141 mmol/L (136-145); UREA NITROGEN, BLOOD 20 mg/dL (7-18)
--- NOTE | 2019-01-05 07:04 | NUR ---
RN CLOSING NOTES NURO CHECKS DONE PER PROTOCOL , STROKE ASSESSMENT DONE. ALL SAFETY PRECAUTIONS IN PLACE. B/P MONITORED. KAN PLACED.PT KEPT DRY AND CLEAN. WILL ENDORSE TO AM RN FOR AMBREEN
--- NOTE | 2019-01-05 07:30 | NUR ---
QUENCHING MACHINE OPERATOR OPENING NOTE RECEIVED BED SIDE REPORT FROM PM NURSE.PATIENT IN BED IN STABLE CONDITION.ON TELE MONITOR SB HR 58.A/O X 1, WITH R SIDE FACIAL DROOPING.R SIDE WEAKNESS. DEBORAH WORDS, FOLLOW COMMANDS, NO SIGNS OF ACUTE DISTRESS. NO COMPLAIN OF PAIN OR DISCOMFORT. IV ON L HAND AND R AC.INTACT AND PATENT. CALL LIGHT WITHIN REACH. BED IS LOCKED AND IN LOW POSITION.SRX3.ALL SAFETY PRECAUTIONS TAKEN. WILL CONTINUE TO MONITOR .
[2019-01-05] MEDS: BLOOD SUGAR DIAGNOSTIC 1 EACH STRIP IN SCH ×4 (07:51→22:41)
[2019-01-05] MEDS: ASPIRIN EC 81 MG TABLET.DR PO SCH (08:16)
[2019-01-05] MEDS: PANTOPRAZOLE 40 MG/PACK PACK PO SCH (08:17)
[2019-01-05] MEDS: CLOPIDOGREL BISULFATE 75 MG TABLET PO SCH (08:17)
[2019-01-05] MEDS: SERTRALINE HCL 50 MG TABLET PO SCH (08:17)
[2019-01-05] MEDS: CARVEDILOL 12.5 MG TABLET PO SCH ×2 (08:17→16:15)
[2019-01-05] MEDS: ATORVASTATIN 40 MG TABLET PO SCH (08:17)
[2019-01-05] MEDS: ACETAMINOPHEN 325 MG TABLET PO PRN (08:21)
[2019-01-05] MEDS: LOSARTAN POTASSIUM 50 MG TABLET PO SCH (09:00)
--- NOTE | 2019-01-05 15:00 | NUR ---
DISTILLERY MANAGER NOTE SEEN BY GAB BOWMAN,UPDATED ABOUT PATIENT CONDITION WITH LABS AND NIHSS SCORE.SEEN PATIENT AT BED SIDE.MADE AWARE THAT R ARM IS FLACCID R LOWER EXTREMITY ABLE TO MOVE DIFFERENT FROM MORNING.IN MORNING R ARM ABLE TO LIFT UP.R LEG WAS FLACCID.PATIENT POCKETING FOOD .SWALLOW EVAL ORDERED.NNO NOW.WILL CONTINUE TO MONITOR.
--- NOTE | 2019-01-05 17:00 | NUR ---
LASER SPECIALIST NOTE LOSARTAN NOT GIVEN ,PATIENT WAS BRADYCARDIC AND LOW BP.DISCARDED MEDS.IT WAS CRUSHED.
--- NOTE | 2019-01-05 19:22 | NUR ---
GENERAL NEUROLOGIST CLOSING NOTE PATIENT IN BED IN STABLE CONDITION.ON TELE MONITOR SB HR 58.A/O X 1, WITH R SIDE FACIAL DROOPING.R ARM FLACCID. R LEG ABLE TO MOVE. DELAYED SPEECH, FOLLOW COMMANDS, NO SIGNS OF ACUTE DISTRESS. NO COMPLAIN OF PAIN OR DISCOMFORT. IV ON L HAND AND R AC.INTACT AND PATENT. CALL LIGHT WITHIN REACH. BED IS LOCKED AND IN LOW POSITION.SRX3.SAFETY MEASURES IN PLACE.GAB BOWMAN MADE AWARE ABOUT BRADYCARDIA WITH PAC HR LOW 44 WHILE SLEEPING. ENDORSED TO PM NURSE FOR AMBREEN.
[2019-01-05] MEDS: INSULIN GLARGINE, 100 UNIT/ML CARTRIDGE SQ SCH (22:42)
[2019-01-05] MEDS: AMLODIPINE BESYLATE 2.5 MG TABLET PO SCH (22:45)
[2019-01-06] VITALS (15 sets, daily range): BP systolic 115–155; BP diastolic 50–76
[2019-01-06 04:46] LABS: BASOPHILS # (AUTO) 0.1 /CMM (0.0-0.2); BASOPHILS % (AUTO) 0.7 % (0.0-2.0); EOSINOPHILS % (AUTO) 2.4 % (0.0-6.0); HEMATOCRIT 41 % (33-45); HEMOGLOBIN 13.7 g/dL (11.5-14.8); LYMPHOCYTES # (AUTO) 2.3 /CMM (0.8-4.8); LYMPHOCYTES % (AUTO) 28.5 % (20.0-44.0); MEAN CORPUSCULAR HGB CONC 33 g/dl (31.0-36.0); MEAN CORPUSCULAR VOLUME 89 fL (82-100); MONOCYTES # (AUTO) 0.7 /CMM (0.1-1.30); MONOCYTES % (AUTO) 8.7 % (2.0-12.0); NEUTROPHILS # (AUTO) 4.8 /CMM (1.8-8.9); NEUTROPHILS % (AUTO) 59.7 % (43.0-81.0); PLATELET COUNT (AUTO) 252 /CMM (150-450); RED BLOOD CELL COUNT(AUTO) 4.65 MIL/uL (4.0-5.2)
[2019-01-06 04:59] LABS: ALANINE AMINOTRANSFERASE 20 U/L (12-78); ALBUMIN 3.2 g/dL (3.4-5.0); ALKALINE PHOSPHATASE 115 U/L (46-116); ASPARTATE AMINOTRANSFERASE 16 U/L (15-37); BILIRUBIN,TOTAL 0.6 mg/dL (0.2-1.0); CALCIUM, SERUM 9.1 mg/dL (8.5-10.1); CARBON DIOXIDE 26 mmol/L (21-32); CHLORIDE 108 mmol/L (98-107); GLUCOSE 113 mg/dL (74-106); MAGNESIUM 2.4 mg/dL (1.8-2.4); PHOSPHORUS 4.8 mg/dL (2.5-4.9); SODIUM SERUM 143 mmol/L (136-145); TOTAL PROTEIN, SERUM 7.6 g/dL (6.4-8.2); UREA NITROGEN, BLOOD 29 mg/dL (7-18)
--- NOTE | 2019-01-06 05:24 | NUR ---
RN PATIENT IN BED ON TELE MONITOR,SB ON TELE HR 50'S. PT A/O X 1, WITH R SIDE FACIAL DROOPING.RIGHT ARM FLACCID, RIGHT LEG UNABLE TO MOVE. DELAYED SPEECH, FOLLOW COMMANDS, NO SIGNS OF ACUTE DISTRESS. NO COMPLAIN OF PAIN OR DISCOMFORT. CALL LIGHT WITHIN REACH. BED IS LOCKED AND IN LOW POSITION, BED ALARM ON.
--- NOTE | 2019-01-06 07:35 | NUR ---
RN NOTE RECEIVED PT FROM MENTAL HEALTH PROFESSIONAL IN BED, SB ON TELE HR 50'S. PT AOX1, WITH R SIDE FACIAL DROOPING. RIGHT ARM FLACCID, RIGHT LEG SLIGHT MOVEMENT,DELAYED AND SLURRED SPEECH, FOLLOW SIMPLE COMMANDS, NO SIGNS OF ACUTE DISTRESS. COMPLAIN OF PAIN IN LEFT LEG. CALL LIGHT WITHIN REACH. BED IS LOCKED AND IN LOW POSITION, BED ALARM ON. WILL MONITOR.
[2019-01-06] MEDS: BLOOD SUGAR DIAGNOSTIC 1 EACH STRIP IN SCH ×4 (07:54→21:18)
[2019-01-06] MEDS: ACETAMINOPHEN 325 MG TABLET PO PRN (08:31)
[2019-01-06] MEDS: ASPIRIN EC 81 MG TABLET.DR PO SCH (08:31)
[2019-01-06] MEDS: SERTRALINE HCL 50 MG TABLET PO SCH (08:31)
[2019-01-06] MEDS: CLOPIDOGREL BISULFATE 75 MG TABLET PO SCH (08:31)
[2019-01-06] MEDS: ATORVASTATIN 40 MG TABLET PO SCH (08:31)
[2019-01-06] MEDS: PANTOPRAZOLE 40 MG/PACK PACK PO SCH (08:31)
[2019-01-06] MEDS: CARVEDILOL 12.5 MG TABLET PO SCH ×2 (08:32→17:23)
[2019-01-06] MEDS: LOSARTAN POTASSIUM 50 MG TABLET PO SCH (09:00)
--- NOTE | 2019-01-06 10:30 | NUR ---
RN NOTE PT TRANSFERRED FROM ICU TO TELEMETRY FLOOR 309/1, REPORT GIVEN TO NITHYA GRANADOS FO AMBREEN. PT STABLE. REPORTED TO HER TO FOLLOW UP WITH SWALLOW, PT, OT EVAL AND ECHOCARDIOGRAM.
--- NOTE | 2019-01-06 10:30 | NUR ---
patient transferred from ICU in stable condition. VS are stable on NC 2l saturating 97 %. Admitted to tele ( SR 61-62). Patient with right sided weakens due to recent stroke. Patient high risk of aspiration, on puree diet. Water with thickener only. Awaiting for speech and swallow evaluation. Patient able to make needs known by saying yes or no only. No distress noted at this time.Skin intact. No complain of pain at this time.Family at bedside. Will continue to monitor
--- NOTE | 2019-01-06 18:57 | NUR ---
PATIENT WITH RIGHT SIDED WEAKNESS.SB ON TELE HR 5O'S. PT AOX1, WITH R SIDE FACIAL DROOPING. RIGHT ARM FLACCID, RIGHT LEG SLIGHT MOVEMENT,DELAYED SPEECH, NO SIGNS OF ACUTE DISTRESS. SAFETY AND ASPIRATION PRECAUTIONS IN PLACE. CALL LIGHT WITHIN REACH. BED IS LOCKED AND IN LOW POSITION, BED ALARM ON. WILL ENDORSE TO NEXT SHIFT FOR AMBREEN.
--- NOTE | 2019-01-06 19:05 | NUR ---
RN MS OPENING NOTES RECEIVED PATIENT IN BED AWAKE ALERT X1, ABLE TO ANSWER YES OR NO, ABLE TO SIGNAL WITH LEFT HAND TO MAKE NEEDS KNOWN. ON CARDIAC MONITORING SINUS YESSI AND SR BETWEEN 55-62. NO DISTRESS PRESENT AT THIS TIME, KAN CATHETER INTAKE AND DRAINING WELL, URINE YELLOW, SKIN ASSESSMENT DONE -INTACT, SCD'S IN PLACE, PATIENT REPOSITIONED,HEELS OFFLOADED, IV SITE TO LEFT HAND #20G INTACT AND PATENT, IV SITE TO RIGHT AC #18 INTACT AND PATENT, BOTH SITES FREE OF REDNESS, OR INFILTRATION , HEAD OF BED ELEVATED FOR ASPIRATION PRECAUTIONS, ORIENTED TO STAFF AND CALL LIGHT AND KEPT WITHIN REACH, WILL CONTINUE TO MONITOR AND ATTEND TO NEEDS
[2019-01-06] MEDS: AMLODIPINE BESYLATE 2.5 MG TABLET PO SCH (21:14)
[2019-01-06] MEDS: INSULIN GLARGINE, 100 UNIT/ML CARTRIDGE SQ SCH (21:34)
[2019-01-06] MEDS: INSULIN REGULAR, HUMAN 100 UNIT/ML 3 ML VIAL SQ PRN (21:37)
[2019-01-07] VITALS: BP 132/59
[2019-01-07 04:00] VITALS: BP 127/56
[2019-01-07 06:18] LABS: BASOPHILS # (AUTO) 0.1 /CMM (0.0-0.2); BASOPHILS % (AUTO) 0.5 % (0.0-2.0); EOSINOPHILS % (AUTO) 2.1 % (0.0-6.0); HEMATOCRIT 42 % (33-45); HEMOGLOBIN 13.5 g/dL (11.5-14.8); LYMPHOCYTES % (AUTO) 19.5 % (20.0-44.0); MEAN CORPUSCULAR HGB CONC 33 g/dl (31.0-36.0); MEAN CORPUSCULAR VOLUME 89 fL (82-100); MONOCYTES # (AUTO) 0.7 /CMM (0.1-1.30); MONOCYTES % (AUTO) 7.1 % (2.0-12.0); NEUTROPHILS # (AUTO) 7.4 /CMM (1.8-8.9); NEUTROPHILS % (AUTO) 70.8 % (43.0-81.0); PLATELET COUNT (AUTO) 248 /CMM (150-450); WHITE BLOOD COUNT (AUTO) 10.5 K/uL (4.3-11.0)
--- NOTE | 2019-01-07 06:29 | NUR ---
RN MS CLOSING NOTES PATIENT IN BED AWAKE ALERT X1, ABLE TO ANSWER YES OR NO, ABLE TO SIGNAL WITH LEFT HAND TO MAKE NEEDS KNOWN. ON CARDIAC MONITORING SINUS YESSI AND SR BETWEEN 58-60. NO DISTRESS PRESENT AT THIS TIME, KAN CATHETER INTAKE AND DRAINING WELL, URINE YELLOW 350 OUTPUT, SKIN ASSESSMENT DONE -INTACT, SCD'S IN PLACE, PATIENT REPOSITIONED,HEELS OFFLOADED, IV SITE TO LEFT HAND #20G INTACT AND PATENT, IV SITE TO RIGHT AC #18 INTACT AND PATENT, BOTH SITES FREE OF REDNESS, OR INFILTRATION , HEAD OF BED ELEVATED FOR ASPIRATION PRECAUTIONS, CALL LIGHT KEPT WITHIN REACH, WILL CONTINUE TO MONITOR AND ATTEND TO NEEDS AND ENDORSE TO NEXT SHIFT, NO CHANGE IN CONDITION , NO CHANGES IN NIHSS SCALE ASSESSMENT.
[2019-01-07 06:34] LABS: CALCIUM, SERUM 9.2 mg/dL (8.5-10.1); CARBON DIOXIDE 25 mmol/L (21-32); CHLORIDE 109 mmol/L (98-107); CREATININE 0.8 mg/dL (0.6-1.3); GLUCOSE 113 mg/dL (74-106); POTASSIUM 4.3 mmol/L (3.5-5.1); SODIUM SERUM 142 mmol/L (136-145); UREA NITROGEN, BLOOD 37 mg/dL (7-18)
[2019-01-07] MEDS: INSULIN REGULAR, HUMAN 100 UNIT/ML 3 ML VIAL SQ PRN ×2 (06:44→11:49)
[2019-01-07] MEDS: BLOOD SUGAR DIAGNOSTIC 1 EACH STRIP IN SCH ×2 (06:44→11:49)
--- NOTE | 2019-01-07 07:25 | NUR ---
RUBBER PRINTING MACHINE OPERATOR OPENING NOTE RECEIVED PT IN BED, ALERT AND ORIENTED X1, ABLE TO ANSWER YES AND NO QUESTIONS, PRESENTS WITH RIGHT SIDED WEAKNESS OF THE RIGHT UPPER AND LOWER EXTREMITIES AND SLIGHT RIGHT SIDED FACIAL DROOP. BREATHING IS EVEN AND UNLABORED ON 2L NC, NO ACUTE DISTRESS NOTED AT THIS TIME. PT ON STONE PRODUCT FABRICATOR AND IS SINUS YESSI, HR 56. KAN CATHETER NOTED TO BE DRAINING CLEAR, YELLOW URINE, LEFT HAND #18G AND RIGHT AC #18G IV ARE PATENT, CLEAN, DRY AND INTACT. SCDS IN PLACE, ASPIRATION PRECAUTIONS MAINTAINED, ALL NEEDS ATTENDED TO. BED IS LOCKED AND IN LOWEST POSITION, SIDE RAILS UP X2, BED ALARM ON, CALL LIGHT AND POSSESSIONS WITHIN REACH.
[2019-01-07 08:00] VITALS: BP 142/67
[2019-01-07] MEDS: CLOPIDOGREL BISULFATE 75 MG TABLET PO SCH (08:49)
[2019-01-07 08:50] VITALS: BP 142/67
[2019-01-07] MEDS: SERTRALINE HCL 50 MG TABLET PO SCH (08:50)
[2019-01-07] MEDS: CARVEDILOL 12.5 MG TABLET PO SCH (08:50)
[2019-01-07] MEDS: ATORVASTATIN 40 MG TABLET PO SCH (08:50)
[2019-01-07] MEDS: LOSARTAN POTASSIUM 50 MG TABLET PO SCH (08:50)
[2019-01-07] MEDS: ASPIRIN EC 81 MG TABLET.DR PO SCH (08:50)
[2019-01-07] MEDS: PANTOPRAZOLE 40 MG/PACK PACK PO SCH (08:53)
--- NOTE | 2019-01-07 13:16 | NUR ---
MS RN NOTE SPOKE WITH ENIEDA SULLIVAN ON THE PHONE, SHE IS AWARE AND AGREEABLE TO TRANSFER OF PT TO [facility] TODAY AT 3P.M
--- NOTE | 2019-01-07 15:22 | NUR ---
MS ADMINISTRATIVE MEDICAL DIRECTOR NOTE PT DISCHARGE TO [facility] VIA AMBULANCE IN MEDICALLY STABLE CONDITION. PT IS ALERT AND ORIENTED X1, ABLE TO ANSWER YES AND NO QUESTIONS, FOLLOW COMMANDS AND HAS RIGHT SIDED FACIAL DROOP WITH SEVERE WEAKNESS OF THE RIGHT UPPER AND LOWER EXTREMITIES. BREATHING IS EVEN AND UNLABORED ON ROOM AIR, NO ACUTE DISTRESS NOTED AT THIS TIME. REPORT GIVEN TO KAMRON KRAFT RN FOR CONTINUITY OF CARE. DISCHARGE PACKET COMPLETED AND PROVIDED PER PROTOCOL INCLUDING MEDICATION RECON, CARVER ED DOCUMENTATION, POLST, AND DISCHARGE INSTRUCTIONS AND RECOMMENDATIONS FROM [facility]. KAMRON KRAFT VERBALIZED UNDERSTANDING. ADLS PROVIDED AND PT ASSISTED TO TURN AND REPOSITION Q2H FOR THE DURATION OF THE SHIFT. PT DID NOT WANT TO TAKE DENTURES OUT FOR TRANSFER. LEFT HAND AND RIGHT AC PERIPHERAL IVS REMOVED WITH CATHETER TIP INTACT. PT HAS KAN CATHETER NOTED WITH YELLOW, CLEAR URINE. SPOKE WITH ENEIDA SULLIVAN OVER THE PHONE WHO IS AWARE OF AND AGREEABLE TO THE D/C AND TRANSFER TO [facility]. REPORT GIVEN TO AMBULANCE STAFF FOR TRANSFER OF CARE.
[2019-01-07] MEDS ORDERED: CLOP75TA15 PO (18:22)
== END 2019-01-07 15:30 | DRG 70 ==
LOC: MED 02:19 → ICU 01-04 18:23 → MED 01-06 10:22 → TELE 01-06 12:27 → MED 01-07 09:53
PROVIDERS: ADMIT Nurse Practitioner Acute Care; ATTEND Nurse Practitioner Acute Care
DX: G45.4 Transient global amnesia (principal); I63.512 Cerebral infarction due to unspecified occlusion or stenosis of left middle cerebral artery; G81.91 Hemiplegia, unspecified affecting right dominant side; R47.01 Aphasia; E03.9 Hypothyroidism, unspecified; I10 Essential (primary) hypertension; I25.10 Atherosclerotic heart disease of native coronary artery without angina pectoris; J44.9 Chronic obstructive pulmonary disease, unspecified; K21.9 Gastro-esophageal reflux disease without esophagitis; E78.5 Hyperlipidemia, unspecified; R40.2414 Glasgow coma scale score 13-15, 24 hours or more after hospital admission; Z86.79 Personal history of other diseases of the circulatory system; Z86.73 Personal history of transient ischemic attack (TIA), and cerebral infarction without residual deficits; Z66 Do not resuscitate; M19.90 Unspecified osteoarthritis, unspecified site; Z79.84 Long term (current) use of oral hypoglycemic drugs; Z79.899 Other long term (current) drug therapy; Z79.82 Long term (current) use of aspirin; G89.29 Other chronic pain
CPT/HCPCS: 36415; 70250-TC; 70496-TC; 71045-TC; 80048-TC; 80053-TC; 80061-TC; 82962-TC; 83735-TC; 84100-TC; 84443-TC; 85025-TC; 85730-TC; 87081-TC; 92526; 92611-TC; 93307-TC; 97110-TC; 97112-TC; 97116-TC; 97530-TC; 97535-TC; G0378; J1815; J7050; Q9967